=== PATIENT | male | born 2000 | race Caucasian/White ===

== ENCOUNTER 2022-08-11 22:24 | Emergency (ER) | payer BC ==
[~2022-08-11] VITALS: Ht 175.3 cm; Wt 77.3 kg
[2022-08-11 22:33] VITALS: TEMP 98.1
[2022-08-11] MEDS ORDERED: ATARAX 25MG25 MG/TAB PO (23:11)
[2022-08-11] MEDS ORDERED: ZOFRAN ODT4 MG PO (23:11)
[2022-08-11 23:26] VITALS: BP 147/77; PULSE 87
== END 2022-08-11 23:26 | disposition home or self-care (01) ==
LOC: COL.ER 22:24
DX: F10.129 Alcohol abuse with intoxication, unspecified (principal); F41.9 Anxiety disorder, unspecified